=== PATIENT | female | born 1975 | race Caucasian/White ===

== ENCOUNTER → 2018-04-07 | Outpatient (CLI) | payer BC ==
[2014-09-12 21:45] VITALS: BP 156/78
[~2018-04-07] MED LIST: HYDR1TAB10 PO; IOHEXOL 240 MG/ML 50ML VIAL. ONE; IOHEXOL 240 MG/ML 50ML VIAL. PO ONE
--- NOTE | 2018-04-07 10:47 | RAD ---
CT study of the abdomen and pelvis without IV contrast Clinical indications: Left upper quadrant abdominal pain for one week increasing in severity. TECHNIQUE: Non-IV contrast helical CT scanning of the abdomen and pelvis was performed. Without IV contrast, the sensitivity to detect organ pathology is decreased. GI contrast was administered per mouth. PQRS compliance Statement One or more of the following individualized dose reduction techniques were utilized for this study: 1. Automated exposure control 2. Adjustment of the mA and/or kV according to patient size 3. Use of iterative reconstruction technique COMPARISON: None available. FINDINGS: The liver and spleen and pancreas are homogeneous in appearance on this noncontrast study. The gallbladder is surgically absent. No extrahepatic biliary ductal dilatation is seen. No adrenal mass is evident. No urinary tract stone or hydronephrosis or hydroureter is seen on either side. No renal mass is seen on either side on this noncontrast study. No focal aneurysmal dilatation of the abdominal aorta is seen. No enlarged abdominal or pelvic lymphadenopathy is evident. Urinary bladder wall is smooth. Uterus is surgically absent. The left ovary is is identified and is normal. The right ovary may be visualized on axial images 128-132 and series 2. However, this could represent nonopacified bowel. There is a round structure present here which measures 2 cm which could represent a right ovarian cyst. Regardless, this is considered a normal finding. No bowel obstruction or free air or free fluid or mesenteric edema is evident. No diverticulitis is evident. The appendix is not visualized but there are no secondary CT findings of appendicitis. The terminal ileum is unremarkable. No lytic process is seen. Bibasilar lung nodules are seen. There is a 6 mm lung nodule within the medial posterior right lung base. There is a 5 mm lung nodule within the medial posterior aspect of the left lung base. IMPRESSION: No acute abnormality of the abdomen or pelvis. Bibasilar lung nodules. Recommend dedicated outpatient chest CT with IV contrast for further evaluation and follow-up. Electronically signed by: Anival Galvez MD (04/07/2018 10:44 AM) [id number]
== END | disposition home or self-care (01) ==
LOC: CT 08:53
PROVIDERS: ATTEND Family Medicine
DX: R10.12 Left upper quadrant pain (principal); R91.8 Other nonspecific abnormal finding of lung field; Z90.710 Acquired absence of both cervix and uterus
CPT/HCPCS: 74176; Q9966

== ENCOUNTER 2021-01-05 03:55 | Inpatient (IN) | payer BC ==
[~2021-01-05] VITALS: Ht 170.2 cm; Wt 122.6 kg
[~2021-01-05 03:55] MED LIST changes: -IOHEXOL 240 MG/ML 50ML VIAL. ONE; -IOHEXOL 240 MG/ML 50ML VIAL. PO ONE
--- NOTE | 2021-01-05 04:01 | PHYS DOC ---
Past History Past Medical History: No Pertinent History Past Surgical History: No Surgical History Alcohol Use: None Drug Use: None Adult General HPI HPI Patient is a 45-year-old female with a past medical history of diabetes who presents with fatigue, body aches, decreased appetite and nonproductive cough over the last several days. States that her daughter had similar symptoms about a week or 2 ago and has now resolved. States her symptoms started probably a week ago but worsened last couple of days. States she has been at home since then but did not call her primary care physician because she was too tired to call. Denies any recent traumas, travels, fevers, chest pain, shortness of breath, abdominal pain, nausea, vomiting, diarrhea. Denies any dysuria, hematuria, blood in the stool. Review of Systems Review of Systems Review of systems otherwise unremarkable except noted in HPI Allergies Allergies Allergies Coded Allergies Type Severity Reaction Last Updated Verified Penicillins Allergy Intermediate 06/17/14 No Physical Exam Physical Exam Constitutional: Well developed, well nourished, no acute distress, non-toxic appearance. [] HENT: Normocephalic, atraumatic, bilateral external ears normal, oropharynx moist, no oral exudates, nose normal. [] Eyes: conjunctiva normal, no discharge. [] Neck: Normal range of motion, no tenderness, supple, no stridor. [] Cardiovascular:Heart rate regular rhythm, no murmur [] Lungs & Thorax: Bilateral breath sounds clear to auscultation [] Abdomen: soft, no tenderness, no masses, no pulsatile masses. [] Skin: Warm, dry, no erythema, no rash. [] Extremities: No tenderness, no cyanosis, no clubbing, ROM intact, no edema. [] Neurologic: Alert and oriented X 3, no focal deficits noted. [] Psychologic: Affect normal, judgement normal, mood normal. [] EKG EKG [] Radiology/Procedures Radiology/Procedures [] Heart Score C/O Chest Pain: No Risk Factors: Risk Factors: DM, Current or recent (<one month) smoker, HTN, HLP, family history of CAD, obesity. Risk Scores: Risk Factors: DM, Current or recent (<one month) smoker, HTN, HLP, family history of CAD, obesity. Course & Med Decision Making Course & Med Decision Making Patient is a 45-year-old female who presents with fatigue, body aches and dry cough Vital signs notable for tachycardia. Physical exam noted above. Placed on the monitor with IV access established. IV fluid begun. Placed on 2 L nasal cannula. Given Tylenol, ibuprofen and cough syrup. Chest x-ray suggestive of viral/atypical/Covid pneumonia. Patient stated that she forgot that she was exposed to Covid a couple weeks ago. Started on steroids. Started antibiotics. Discussed all findings with patient and family and recommended admission for continued evaluation and treatment of probable Covid pneumonia with new oxygen requirement. Patient family grateful, verbalized understanding and agreed with plan of admission. Dragon Disclaimer Dragon Disclaimer This electronic medical record was generated, in whole or in part, using a voice recognition dictation system. Departure Departure: Impression: Primary Impression: Pneumonia Additional Impressions: Hypoxia Person under investigation for COVID-19 Disposition: 01 HOME / SELF CARE / HOMELESS Admitting Physician: Fidencio Howell Condition: IMPROVED Referrals: TREY MARTINEZ MD (PCP) Problem Qualifiers SARITHA DUGGAN MD Jan 05, 2021 04:01
[2021-01-05] MEDS ORDERED: IBUPROFEN 600 MG TABLET. PO ONE (04:30)
[2021-01-05] MEDS ORDERED: ACETAMINOPHEN 500 MG TABLET PO ONE (04:30)
[2021-01-05] MEDS ORDERED: guaiFENesin/CODEINE 100mg/10mg 5 ML LIQUID PO ONE (04:30)
[2021-01-05] MEDS ORDERED: IV RINGERS SOLUTION,LACTATED 1,000 ML IV ONE (04:30)
--- NOTE | 2021-01-05 05:02 | RAD ---
XR CHEST 1V Clinical History: Reason: cough, short of air / Spl. Instructions: / History: Technique: AP view of the chest was obtained at 01/05/2021 4:22 AM. Comparison: None. Findings: The cardiomediastinal silhouette is normal. The pulmonary vasculature is normal. There is patchy jose pheral opacities of lungs bilaterally. Impression: Bilateral pulmonary infiltrates consistent with atypical pneumonia. Electronically signed by: Nicola Miramontes III, MD (01/05/2021 5:00 AM) [facility]
[2021-01-05 05:14] LABS: BASO % 0 % (0-3); EOS % 0 % (0-3); HEMATOCRIT 43.1 % (36.0-47.0); HEMOGLOBIN 14.4 g/dL (12.0-15.5); LYMPH # 0.9 x10^3/uL (1.0-4.8); LYMPH % 14 % (24-48); MEAN CORPUSCULAR HEMOGLOBIN 31 pg (25-35); MEAN CORPUSCULAR HGB CONC 33 g/dL (31-37); MEAN CORPUSCULAR VOLUME 92 fL (79-100); MONO # 0.4 x10^3/uL (0.0-1.1); MONO % 6 % (0-9); NEUT # 5.2 x10^3uL (1.8-7.7); NEUT % 80 % (31-73); PLATELET COUNT 229 x10^3/uL (140-400); RED BLOOD COUNT 4.71 x10^6/uL (3.50-5.40); RED CELL DISTRIBUTION WIDTH 13.3 % (11.5-14.5); WHITE BLOOD COUNT 6.5 x10^3/uL (4.0-11.0)
[2021-01-05] MEDS ORDERED: ONDANSETRON PF 4 MG/2 ML VIAL. IVP PRN (05:15)
[2021-01-05] MEDS ORDERED: ACETAMINOPHEN 325 MG TABLET PO PRN (05:15)
[2021-01-05 05:20] LABS: CALCIUM 8.5 mg/dL (8.5-10.1); CREATININE 0.6 mg/dL (0.6-1.0); GFR 109.1
[2021-01-05 05:22] LABS: BILIRUBIN,URINE SMALL (NEG); CLARITY,URINE CLEAR; COLOR,URINE YELLOW; GLUCOSE,URINE 100 mg/dL (NEG); U PREG PATIENT NEGATIVE (NEG)
[2021-01-05 05:23] LABS: BACTERIA,URINE 0 /HPF (0-FEW); NITRITE,URINE NEG (NEG); RBC,URINE RARE /HPF (0-2); SQUAMOUS EPITHELIAL CELL,UR MOD /LPF; WBC,URINE OCC /HPF (0-4)
[2021-01-05 05:24] LABS: YEAST,URINE PRESENT /HPF
[2021-01-05 05:25] LABS: POTASSIUM 4.9 mmol/L (3.5-5.1)
[2021-01-05] MEDS ORDERED: DEXAMETHASONE 4 MG TABLET PO ONE (05:30)
[2021-01-05] MEDS ORDERED: PANTOPRAZOLE 40 MG TABLET. PO ONE ×2 (10:00→11:30)
[2021-01-05] MEDS ORDERED: DULoxetine HCL 60 MG CAPSULE.DR PO SCH (11:30)
[2021-01-05] MEDS ORDERED: FAMOTIDINE 20 MG TABLET PO ONE (11:30)
[2021-01-05] MEDS ORDERED: metFORMIN 500 MG TABLET PO ONE (11:30)
[2021-01-05] MEDS ORDERED: EZETIMIBE 10 MG TABLET PO SCH (11:30)
[2021-01-05] MEDS ORDERED: HEPARIN for SUB-Q USE 5,000 UNIT/ML VIAL. SQ ONE (11:48)
[2021-01-05] MEDS: hydrOXYzine PAMOATE 25 MG CAPSULE PO PRN ×2 (11:53→21:16)
[2021-01-05] MEDS: INSULIN LISPRO 300 UNITS/3 ML VIAL. SQ SCH (12:11)
[2021-01-05] MEDS: HEPARIN for SUB-Q USE 5,000 UNIT/ML VIAL. SQ SCH ×2 (14:15→21:18)
[2021-01-05] MEDS ORDERED: INSULIN REGULAR 100 UNIT/ML 3ML VIAL. IV ONE (14:30)
--- NOTE | 2021-01-05 15:30 | NUR ---
Nursing note: Pt arrived on gurney from ED. Pt seen by RN lorene LUCAS. Pt alert and oriented x4, pleasant, cooperative. Orientation to room amenities and unit routines provided. Pt states she had hystory of falls at home d/t numbness at feet. She also states she has sleep apnea and wanted to have sleep avaluation but did not have the procedure done d/t lack of insurance approval. health promotion manager referral initiated.
[2021-01-05] MEDS ORDERED: HYDR25TA PO (15:56)
[2021-01-05] MEDS ORDERED: METO50TA6 PO (15:56)
[2021-01-05] MEDS ORDERED: FAMO40TA4 PO (15:56)
[2021-01-05] MEDS ORDERED: PANT40TA6 PO (15:56)
[2021-01-05] MEDS ORDERED: METF10007 PO (15:56)
[2021-01-05] MEDS ORDERED: ASPI-630 PO (15:56)
[2021-01-05] MEDS ORDERED: MULT-245 PO (15:56)
[2021-01-05] MEDS ORDERED: MONT10TA80 PO (15:56)
[2021-01-05] MEDS ORDERED: DULO40CA2 PO (15:56)
[2021-01-05] MEDS ORDERED: TRAZ150T49 PO (15:56)
[2021-01-05] MEDS ORDERED: ROSUVASTATIN CA40 MG PO (15:56)
[2021-01-05] MEDS ORDERED: CHOL10004 PO (15:56)
[2021-01-05] MEDS ORDERED: IBUP200T58 PO (15:56)
[2021-01-05] MEDS ORDERED: DAPA10TA PO (15:56)
[2021-01-05] MEDS ORDERED: LORA10TA3 PO (15:56)
[2021-01-05] MEDS ORDERED: SEMA1PEN SQ (15:56)
[2021-01-05] MEDS ORDERED: INSU100V37 SQ (15:56)
[2021-01-05] MEDS ORDERED: EZET10TA20 PO (15:56)
[2021-01-05] MEDS ORDERED: INSU100C4 SQ (15:56)
[2021-01-05 16:10] VITALS: BP 117/70
--- NOTE | 2021-01-05 17:37 | HP ---
DATE OF SERVICE: 01/05/2021 ADMIT DATE: 01/05/2021 HISTORY OF PRESENT ILLNESS: The patient is a 45-year-old female patient who presented to the Emergency Room of [facility] with a complaint of increasing fatigue, body aches, decreased poor appetite and nonproductive cough over the last several days. She states that her daughter had similar symptoms about 2 weeks ago, that has resolved. Stated her symptoms started probably a week ago, but worsened over the last couple of days. She has been at home since then. She was too weak to call her primary care physician. She was exposed to her daughter's friend who tested positive for COVID. She denied, however, any recent travel. Denied any fever, chest pain, nausea, vomiting, diarrhea or constipation. Denied loss of taste or smell. She was extensively investigated in the Emergency Room, has had lab work and imaging studies. Her lab work showed her white cell count was normal. Her chemistry showed that she has hyperglycemia and mild dilutional hyponatremia. Her urinalysis essentially unremarkable. Her urine test was negative, and her coronavirus by rapid testing was positive. Her chest x-ray showed that the cardiomediastinal silhouette is normal. The pulmonary vasculature is normal. There are patchy peripheral opacities in the lungs bilaterally, with the impression that the patient has bilateral pulmonary infiltrates consistent with ____ pneumonia. The patient was admitted to the hospital with the COVID-19 pneumonia and acute hypoxic respiratory failure. She was started on IV levofloxacin and dexamethasone as well as heparin and we will continue all her home medications. PAST MEDICAL HISTORY: Significant for type 2 diabetes mellitus with diabetic retinopathy and neuropathy. She apparently had laser photocoagulation, hyperlipidemia, hypertension, osteoarthritis of both knee joints. PAST SURGICAL HISTORY: Significant for 3 C-sections, cholecystectomy and total abdominal hysterectomy without oophorectomy. ALLERGIES: SHE IS ALLERGIC TO CARI INHIBITORS, FISH-CONTAINING PRODUCTS, PENICILLIN, AVOCADO, CLINDAMYCIN, FLUVOXAMINE, KIWI AND MORPHINE. MEDICATIONS: She is currently on the following medications: She is on loratadine 10 mg once a day, Zetia 10 mg once a day, metoprolol tartrate 50 mg daily. She is on aspirin 81 mg once a day, ibuprofen 200 mg as needed, hydrocodone/ibuprofen 7.5/200 one tablet every 6 hours, duloxetine 60 mg twice a day, trazodone 150 mg at bedtime, hydroxyzine 50 mg daily. She is on montelukast 10 mg daily, famotidine 40 mg daily and Protonix 40 mg daily. She is on metformin 1000 mg twice a day. She was on Ozempic 1 mg in 0.75 mL subcutaneously once a week. She is on NovoLog insulin 35 units at least 3 times a day before meals and Tresiba 50 units subcutaneously twice a day. She is on Farxiga 10 mg daily. She is on ____ vitamin D 25 mcg once a day and multivitamin 1 tablet once a day, Crestor 40 mg at bedtime. FAMILY HISTORY: She has no full brothers or sisters. Does not know anything about her biological father. Mother is still alive at the age of 59, has diabetes and multiple TIAs. SOCIAL HISTORY: She is , has 2 daughters and 1 son. She never smoked. Drinks alcohol once in a blue aguirre. She does not use any drugs. 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 REVIEW OF SYSTEMS: As per history of present illness. PHYSICAL EXAMINATION: GENERAL: On arrival to the Emergency Room, she looked well and was clearly in no apparent respiratory distress. There was no pallor, jaundice, cyanosis. No lymphadenopathy, no thyromegaly, no jugular venous distention. No lower limb edema. VITAL SIGNS: Her heart rate was 115, blood pressure was 114/70, her temperature was 98.5, respiratory rate was 22 and oxygen saturation was 97% on 2 liters of oxygen. HEAD, EYES, EARS, NOSE, AND THROAT: Showed normocephalic, atraumatic. NECK: Supple. HEART: Showed normal first and second heart sounds. No gallop or murmur. CHEST: Shows central trachea, equal bilateral chest expansion, air entry, vesicular breath sounds with crepitation mostly on the right side posteriorly. I could not appreciate any rhonchi. ABDOMEN: Distended, soft, nontender. NEUROLOGIC: She was grossly intact. LABORATORY DATA: Her lab work on admission showed a white cell count of 6500, hemoglobin 14, hematocrit 43, MCV 92 and platelet count 229,000, and manual differential showed 80% polymorphs, 14% lymphocytes, 6% monocytes. Her chemistry showed a serum sodium 133, potassium 4.9, chloride 95, bicarbonate 25, anion gap of 13, BUN 14, creatinine 0.6. Estimated GFR was 109 mL per minute. Her glucose was ____ and calcium was 8.5. Troponin I high sensitivity was only 6. Urinalysis essentially unremarkable, and her coronavirus by rapid testing was positive. Her chest x-ray showed the patient has bilateral pulmonary infiltrates consistent with atypical pneumonia. ASSESSMENT AND PLAN: The patient was admitted with COVID-19 pneumonia and acute hypoxic respiratory failure. We will continue treatment with IV antibiotic, IV remdesivir, dexamethasone. We will continue to monitor blood sugar and adjust insulin as needed. Continue with all her other medications. DONTRELL DR: Anabel TID: [id number]
[2021-01-05] MEDS ORDERED: REMDESIVIR LOAD in IV NORMAL SALINE 250ML TV IV ONE (18:00)
[2021-01-05] MEDS: DULoxetine HCL 60 MG CAPSULE.DR PO SCH (18:17)
[2021-01-05] MEDS: INSULIN GLARGINE SYRINGE. SQ SCH (18:19)
[2021-01-05 18:39] VITALS: BP 130/79
--- NOTE | 2021-01-05 19:21 | EKG ---
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
[2021-01-05] MEDS ORDERED: metFORMIN XR 500 MG TAB.ER.24H PO SCH (21:00)
[2021-01-05] MEDS: traZODone 150 MG TABLET. PO SCH (21:16)
[2021-01-05] MEDS: ATORVASTATIN CALCIUM 20 MG TABLET PO SCH (21:16)
[2021-01-05] MEDS: MONTELUKAST 10 MG TABLET. PO SCH (21:16)
[2021-01-05 22:40] VITALS: BP 120/72
[2021-01-06] MEDS: HEPARIN for SUB-Q USE 5,000 UNIT/ML VIAL. SQ SCH ×3 (06:06→21:36)
[2021-01-06 06:15] LABS: BASO % 0 % (0-3); EOS % 0 % (0-3); HEMATOCRIT 41.8 % (36.0-47.0); HEMOGLOBIN 13.8 g/dL (12.0-15.5); LYMPH # 0.9 x10^3/uL (1.0-4.8); LYMPH % 11 % (24-48); MEAN CORPUSCULAR HEMOGLOBIN 30 pg (25-35); MEAN CORPUSCULAR HGB CONC 33 g/dL (31-37); MEAN CORPUSCULAR VOLUME 92 fL (79-100); MONO # 0.4 x10^3/uL (0.0-1.1); MONO % 5 % (0-9); NEUT # 6.2 x10^3uL (1.8-7.7); NEUT % 84 % (31-73); PLATELET COUNT 234 x10^3/uL (140-400); RED BLOOD COUNT 4.55 x10^6/uL (3.50-5.40); RED CELL DISTRIBUTION WIDTH 13.3 % (11.5-14.5); WHITE BLOOD COUNT 7.4 x10^3/uL (4.0-11.0)
[2021-01-06 06:17] VITALS: BP 105/63
[2021-01-06 06:27] LABS: ALBUMIN 2.5 g/dL (3.4-5.0); ALBUMIN/GLOBULIN RATIO 0.5 (1.0-1.7); CALCIUM 8.8 mg/dL (8.5-10.1); CREATININE 0.8 mg/dL (0.6-1.0); GFR 78.3; POTASSIUM 4.4 mmol/L (3.5-5.1); TOTAL BILIRUBIN 0.3 mg/dL (0.2-1.0); TOTAL PROTEIN 7.2 g/dL (6.4-8.2)
[2021-01-06] MEDS ORDERED: INSULIN ASPART 35 UNIT SQ SCH (07:30)
[2021-01-06] MEDS ORDERED: NON FORMULARY ITEM (Dapagliflozin Propanediol (Farxiga) 10 MG) PO SCH (08:00)
[2021-01-06] MEDS: INSULIN GLARGINE SYRINGE. SQ SCH ×2 (08:42→21:36)
[2021-01-06] MEDS: CHOLECALCIFEROL (VITAMIN D3) 1,000 UNIT TABLET PO SCH (08:43)
[2021-01-06] MEDS: DULoxetine HCL 60 MG CAPSULE.DR PO SCH ×2 (08:43→17:06)
[2021-01-06] MEDS: CETIRIZINE HCL 10 MG TABLET PO SCH (08:43)
[2021-01-06] MEDS: EZETIMIBE 10 MG TABLET PO SCH (08:43)
[2021-01-06] MEDS: MULTIVITAMIN with MINERAL TABLET. PO SCH (08:43)
[2021-01-06] MEDS: PANTOPRAZOLE 40 MG TABLET. PO SCH (08:43)
[2021-01-06] MEDS: ASPIRIN CHEWABLE 81 MG TABLET. PO SCH (08:43)
[2021-01-06] MEDS: METOPROLOL SUCC 24HR ER 50 MG TAB.ER.24H. PO SCH (08:44)
[2021-01-06] MEDS: DEXAMETHASONE SOD PHOS 4 MG/ML VIAL. IVP SCH (08:45)
[2021-01-06] MEDS: INSULIN LISPRO 300 UNITS/3 ML VIAL. SQ SCH ×3 (09:12→17:14)
[2021-01-06 11:07] VITALS: BP 103/73
[2021-01-06 14:37] VITALS: BP 120/69
[2021-01-06] MEDS: REMDESIVIR 100mg in NORMAL SALINE 250ML X 4 DAYS IV SCH (17:06)
[2021-01-06 20:47] VITALS: BP 115/66
[2021-01-06] MEDS: MONTELUKAST 10 MG TABLET. PO SCH (21:36)
[2021-01-06] MEDS: traZODone 150 MG TABLET. PO SCH (21:36)
[2021-01-06] MEDS: ATORVASTATIN CALCIUM 20 MG TABLET PO SCH (21:37)
[2021-01-06 22:30] VITALS: BP 103/75
--- NOTE | 2021-01-06 23:36 | NUR ---
Pt lying on left side resting at start of shift. Pt states, "I feel better than yesterday." She denies pain and moves independently to toilet. Will continue to monitor.
--- NOTE | 2021-01-07 00:17 | PN ---
DATE: 01/06/2021 SUBJECTIVE: The patient is resting, slightly propped up in bed, in no apparent distress, awake, alert. On questioning her, she said she does have cough, which is mostly dry. Denied any chest pain. Denied any chills, rigors or fever. Denied any shortness of breath and dizziness or lightheadedness. She has been up to the bathroom and back. She continued to maintain her oxygen saturation of 93% on 2 liters of oxygen by nasal cannula. PHYSICAL EXAMINATION: GENERAL: When I examined her, she looked well and was clearly in no apparent respiratory distress. No pallor, jaundice, cyanosis or thyromegaly. No jugular venous distention. No limb edema. VITAL SIGNS: Her heart rate was 84, blood pressure is 103/73, temperature was 95.5, respiratory rate was 16 and oxygen saturation was 93% on 2 liters of oxygen. HEAD, EYES, EARS, NOSE, AND THROAT: Normocephalic, atraumatic. NECK: Supple. HEART: Showed normal first and second heart sounds. No gallop, rub or murmur. CHEST: Clear to auscultation, no crepitation or rhonchi. ABDOMEN: Distended, soft, nontender. NEUROLOGIC: She was grossly intact. Her intake and output were 1370 and output was ____. LABORATORY DATA: Her white cell count was 7400, hemoglobin 14, hematocrit 42, MCV 92 and platelet count 234,000. Her chemistry showed a serum sodium 140, potassium 4.4, chloride 102, bicarbonate 26, anion gap of 12, BUN 21, creatinine was 0.8. Estimated GFR was 78 mL per minute. Her glucose continued to be high at 336, calcium was 8.8. Total bilirubin, AST, ALT, alkaline phosphatase were normal. ASSESSMENT: In summary, this is a 45-year-old who was admitted with COVID-19 pneumonia, acute hypoxic respiratory failure. She has a multitude of other medical problems including type 2 diabetes mellitus with multiple diabetic complications including retinopathy and neuropathy, hyperlipidemia, hypertension, osteoarthritis of both knee joints. Her blood sugar is suboptimally controlled. PLAN: My plan is to continue with IV antibiotic. Continue with dexamethasone and remdesivir. Continue with IV levofloxacin. I will increase her insulin as she continued to be on dexamethasone. I will increase her Lantus insulin to 60 units b.i.d. and her Humalog insulin to 40 units before meals. KAJAL DR: Anabel TID: [id number]
[2021-01-07] MEDS: HEPARIN for SUB-Q USE 5,000 UNIT/ML VIAL. SQ SCH ×3 (06:15→21:34)
[2021-01-07 06:36] VITALS: BP 87/38
--- NOTE | 2021-01-07 06:39 | NUR ---
Pt lying right lateral. BP measured 87/38, map 54. 500mL bolus NS administered. Dr. Dante avelar. Will remeasure BP in 30 minutes.
[2021-01-07] MEDS: INSULIN GLARGINE SYRINGE. SQ SCH ×2 (07:00→21:33)
[2021-01-07 07:59] LABS: BASO % 0 % (0-3); EOS % 0 % (0-3); HEMATOCRIT 39.3 % (36.0-47.0); HEMOGLOBIN 12.8 g/dL (12.0-15.5); LYMPH # 1.3 x10^3/uL (1.0-4.8); LYMPH % 15 % (24-48); MEAN CORPUSCULAR HEMOGLOBIN 30 pg (25-35); MEAN CORPUSCULAR HGB CONC 33 g/dL (31-37); MEAN CORPUSCULAR VOLUME 92 fL (79-100); MONO # 0.5 x10^3/uL (0.0-1.1); MONO % 6 % (0-9); NEUT # 6.9 x10^3uL (1.8-7.7); NEUT % 79 % (31-73); PLATELET COUNT 282 x10^3/uL (140-400); RED BLOOD COUNT 4.28 x10^6/uL (3.50-5.40); RED CELL DISTRIBUTION WIDTH 13.3 % (11.5-14.5); WHITE BLOOD COUNT 8.7 x10^3/uL (4.0-11.0)
[2021-01-07] MEDS: INSULIN LISPRO 300 UNITS/3 ML VIAL. SQ SCH ×3 (08:00→17:49)
[2021-01-07 08:06] LABS: ALBUMIN 2.4 g/dL (3.4-5.0); ALBUMIN/GLOBULIN RATIO 0.6 (1.0-1.7); CALCIUM 8.7 mg/dL (8.5-10.1); CREATININE 0.7 mg/dL (0.6-1.0); GFR 91.3; POTASSIUM 3.8 mmol/L (3.5-5.1); TOTAL BILIRUBIN 0.3 mg/dL (0.2-1.0); TOTAL PROTEIN 6.7 g/dL (6.4-8.2)
[2021-01-07 08:11] VITALS: BP 86/50
[2021-01-07] MEDS: METOPROLOL SUCC 24HR ER 50 MG TAB.ER.24H. PO SCH (09:00)
[2021-01-07] MEDS: DULoxetine HCL 60 MG CAPSULE.DR PO SCH ×2 (09:23→17:49)
[2021-01-07] MEDS: LACTOBACILLUS RHAMNOSUS GG 1 CAPSULE. PO SCH ×2 (09:23→21:31)
[2021-01-07] MEDS: CHOLECALCIFEROL (VITAMIN D3) 1,000 UNIT TABLET PO SCH (09:23)
[2021-01-07] MEDS: EZETIMIBE 10 MG TABLET PO SCH (09:23)
[2021-01-07] MEDS: ASPIRIN CHEWABLE 81 MG TABLET. PO SCH (09:23)
[2021-01-07] MEDS: CETIRIZINE HCL 10 MG TABLET PO SCH (09:23)
[2021-01-07] MEDS: DEXAMETHASONE SOD PHOS 4 MG/ML VIAL. IVP SCH (09:24)
[2021-01-07] MEDS: MULTIVITAMIN with MINERAL TABLET. PO SCH (09:24)
[2021-01-07] MEDS: PANTOPRAZOLE 40 MG TABLET. PO SCH (09:26)
[2021-01-07 10:44] VITALS: BP 100/62
[2021-01-07 14:12] VITALS: BP 114/71
[2021-01-07 17:58] VITALS: BP 129/83
[2021-01-07] MEDS: REMDESIVIR 100mg in NORMAL SALINE 250ML X 4 DAYS IV SCH (18:15)
--- NOTE | 2021-01-07 20:08 | PN ---
SUBJECTIVE: The patient is resting, slightly propped up in bed, in no apparent distress. She is feeling generally much better. Denied any cough or phlegm. Denied any chest pain or shortness of breath. She is now maintaining her oxygen saturation at 94% on room air. PHYSICAL EXAMINATION: GENERAL: When I examined her, she looked well with no pallor, jaundice, cyanosis or thyromegaly. No jugular venous distention. No limb edema. VITAL SIGNS: Her heart rate was 71, blood pressure is 100/62, temperature 97.3, respiratory rate 20 and oxygen saturation was 94% on 3 liters of oxygen. HEAD, EYES, EARS, NOSE, AND THROAT: Normocephalic, atraumatic. NECK: Supple. HEART: Showed normal first and second heart sounds, no gallop or murmur. CHEST: Showed central trachea, equal bilateral expansion, air entry, vesicular breath sounds with crepitation mostly on the right side posteriorly. I could not appreciate any rhonchi. ABDOMEN: Distended, soft, nontender. NEUROLOGIC: She was grossly intact. Her intake was 1370, no output was recorded. LABORATORY DATA: This morning showed a white cell count of 8700, hemoglobin 13, hematocrit 39, MCV 92 and platelet count of 282,000 with normal manual differential. Her chemistry showed a serum sodium 142, potassium 3.8, chloride 106, bicarbonate 29, anion gap of 7, BUN 25, creatinine 0.7. Estimated GFR was 91 mL per minute. Her glucose was 91, calcium was 8.7. Total bilirubin, AST, ALT, alkaline phosphatase were normal. Total protein 6.7, albumin was 2.4. Urinalysis was essentially unremarkable. ASSESSMENT: 1. COVID-19 pneumonia. 2. Acute hypoxic respiratory failure. 3. Type 2 diabetes mellitus, much better improved. She has also diabetic retinopathy, neuropathy. 4. Hyperlipidemia. 5. Hypertension. 6. Osteoarthritis of both knee joints. PLAN: To continue with IV antibiotic. Continue with steroids and remdesivir. Continue to monitor his blood sugar and adjust insulin as needed. We will discharge her home tomorrow. HUGO BALDWIN: Anabel TID: [id number]
[2021-01-07] MEDS: MONTELUKAST 10 MG TABLET. PO SCH (21:30)
[2021-01-07] MEDS: traZODone 150 MG TABLET. PO SCH (21:31)
[2021-01-07] MEDS: ATORVASTATIN CALCIUM 20 MG TABLET PO SCH (21:31)
[2021-01-08 00:30] VITALS: BP 122/80
[2021-01-08 06:17] VITALS: BP 121/81
[2021-01-08] MEDS: HEPARIN for SUB-Q USE 5,000 UNIT/ML VIAL. SQ SCH ×2 (06:25→14:37)
[2021-01-08] MEDS: INSULIN LISPRO 300 UNITS/3 ML VIAL. SQ SCH ×2 (07:54→11:58)
[2021-01-08] MEDS: ASPIRIN CHEWABLE 81 MG TABLET. PO SCH (07:55)
[2021-01-08] MEDS: PANTOPRAZOLE 40 MG TABLET. PO SCH (07:55)
[2021-01-08] MEDS: CHOLECALCIFEROL (VITAMIN D3) 1,000 UNIT TABLET PO SCH (07:55)
[2021-01-08] MEDS: EZETIMIBE 10 MG TABLET PO SCH (07:55)
[2021-01-08] MEDS: MULTIVITAMIN with MINERAL TABLET. PO SCH (07:55)
[2021-01-08] MEDS: CETIRIZINE HCL 10 MG TABLET PO SCH (07:55)
[2021-01-08] MEDS: LACTOBACILLUS RHAMNOSUS GG 1 CAPSULE. PO SCH (07:55)
[2021-01-08] MEDS: DULoxetine HCL 60 MG CAPSULE.DR PO SCH (07:55)
[2021-01-08] MEDS: METOPROLOL SUCC 24HR ER 50 MG TAB.ER.24H. PO SCH (07:56)
[2021-01-08] MEDS: DEXAMETHASONE SOD PHOS 4 MG/ML VIAL. IVP SCH (07:56)
[2021-01-08] MEDS: INSULIN GLARGINE SYRINGE. SQ SCH (09:03)
[2021-01-08 11:51] VITALS: BP 120/76
[2021-01-08] MEDS ORDERED: LEVO750T5 PO (14:19)
[2021-01-08] MEDS ORDERED: DEXA6TAB PO (14:19)
[2021-01-08] MEDS: REMDESIVIR 100mg in NORMAL SALINE 250ML X 4 DAYS IV SCH (14:29)
--- NOTE | 2021-01-08 15:21 | NUR ---
PT DISCHARGED HOME. PT PICKED UP BY . PT HAD DISCHARGE PAPERWORK AND BELONGINGS. PT AMBULATED TO THE FRONT ACCOMPANIED BY STAFF. PT IV AND HEART MONITORED REMOVED.
--- NOTE | 2021-01-08 15:47 | DS ---
DATE OF DISCHARGE: 01/08/2021 HOSPITAL COURSE: The patient is a 45-year-old female patient who was admitted with COVID-19 pneumonia, possible superimposed community-acquired pneumonia and acute hypoxic respiratory failure. She was treated with IV Levaquin as well as dexamethasone and remdesivir and did very well. She is now doing well, maintaining her oxygen saturation at 96% on room air and a decision was made to discharge her home to continue with oral antibiotics and oral dexamethasone together with all her other medication. PHYSICAL EXAMINATION: GENERAL: When I saw her this afternoon, she looked well and was clearly in no apparent respiratory distress. No pallor, jaundice, cyanosis or thyromegaly. No jugular venous distention. No lower limb edema. VITAL SIGNS: Her heart rate was 80, blood pressure is 120/76, temperature 97.8, respiratory rate 20, and oxygen saturation was 96%. HEAD, EYES, EARS, NOSE AND THROAT: Normocephalic, atraumatic. NECK: Supple. HEART: Normal first and second heart sounds, no gallop or murmur. Chest was clear to auscultate. CHEST: Shows central trachea, equal bilateral expansion, air entry, vesicular breath sounds with basal crepitation posteriorly, more on the left than right. ABDOMEN: Soft, nontender. NEUROLOGIC: She was grossly intact. Her intake was 1370, no output was recorded. LABORATORY DATA: As of yesterday showed a white cell count of 8700, hemoglobin 13, hematocrit 39, MCV 92 and platelet count of 282,000 with a normal manual differential. Her chemistry showed that her serum sodium was 142, potassium 3.8, chloride 106, bicarbonate 29, anion gap of 7, BUN 26, creatinine 0.7. Estimated GFR was 91 mL per minute. Her glucose 91, calcium was 8.7. Total bilirubin, AST, ALT, alkaline phosphatase were normal. Total protein 6.7, albumin was 2.4. DISCHARGE MEDICATIONS: The patient was discharged home to continue on Lactobacillus rhamnosus 1 capsule twice a day, Lantus insulin 60 units twice a day, Humalog insulin 40 units before meals, dexamethasone 6 mg once a day for 7 more days, levofloxacin 750 mg daily for 7 more days, multivitamin 1 tablet once a day, cetirizine 10 mg daily, metoprolol succinate 50 mg daily, Zetia 10 mg once a day, vitamin D 1000 units once a day, aspirin 81 mg once a day, Protonix 40 mg daily, atorvastatin 80 mg at bedtime, trazodone 150 mg daily, montelukast 10 mg at bedtime, duloxetine 60 mg twice a day and hydroxyzine 50 mg every 6 hours. FINAL DISCHARGE DIAGNOSES: 1. COVID-19 pneumonia. 2. Acute hypoxic respiratory failure. 3. Possible superimposed community-acquired pneumonia. 4. Type 2 diabetes mellitus with diabetic retinopathy and neuropathy. 5. Hyperlipidemia. 6. Hypertension. 7. Osteoarthritis of both knee joints. MAGALYS/BRIAN DR: Anabel TID: [id number]
[2021-01-12] MEDS ORDERED: NON FORMULARY ITEM (Semaglutide (Ozempic) 1 MG) SQ SCH (09:00)
== END 2021-01-08 15:23 | disposition home or self-care (01) | DRG 177 ==
LOC: ER 03:55 → 1 SOUTH 14:53
PROVIDERS: ADMIT Internal Medicine; ATTEND Internal Medicine
PROC: XW033E5 Introduction of Remdesivir Anti-infective into Peripheral Vein, Percutaneous Approach, New Technology Group 5 (ICD-10-PCS; principal; 2021-01-05)
DX: U07.1 COVID-19 (principal); J12.82 Pneumonia due to coronavirus disease 2019; J96.01 Acute respiratory failure with hypoxia; E87.1 Hypo-osmolality and hyponatremia; E11.40 Type 2 diabetes mellitus with diabetic neuropathy, unspecified; I10 Essential (primary) hypertension; E78.5 Hyperlipidemia, unspecified; E11.319 Type 2 diabetes mellitus with unspecified diabetic retinopathy without macular edema; E11.65 Type 2 diabetes mellitus with hyperglycemia; M17.0 Bilateral primary osteoarthritis of knee; Z88.0 Allergy status to penicillin; Z90.710 Acquired absence of both cervix and uterus; Z83.3 Family history of diabetes mellitus
CPT/HCPCS: 36415; 71045; 80048; 80053; 81001; 81025; 82947; 83605; 84484; 85025; 87426; 93005; 96361; 96365; 96372; 96375; J1100; J1644; J1815; J1956; J2405; J3010; J7050; J7120; J8540; Q0177; 99285-25

== ENCOUNTER 2021-01-24 09:36 | Emergency (ER) | payer BC ==
[~2021-01-24] VITALS: Ht 322.6 cm; Wt 122.6 kg
[~2021-01-24 09:36] MED LIST changes: +ASPI-630 PO; +CHOL10004 PO; +DAPA10TA PO; +DEXA6TAB PO; +DULO40CA2 PO; +EZET10TA20 PO; +FAMO40TA4 PO; +HYDR25TA PO; +IBUP200T58 PO; +INSU100C4 SQ; +INSU100V37 SQ; +LEVO750T5 PO; +LORA10TA3 PO; +METF10007 PO; +METO50TA6 PO; +MONT10TA80 PO; +MULT-245 PO; +PANT40TA6 PO; +ROSUVASTATIN CA40 MG PO; +SEMA1PEN SQ; +TRAZ150T49 PO
[2021-01-24 09:40] VITALS: BP 120/76
--- NOTE | 2021-01-24 10:09 | EKG ---
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
[2021-01-24] MEDS ORDERED: IV NORMAL SALINE 1,000ML 1,000 ML IV ONE ×2 (10:15→13:15)
--- NOTE | 2021-01-24 10:15 | PHYS DOC ---
Past History Past Medical History: No Pertinent History Additional Past Medical Histor: NEUROPATHY, VIT D DEFICIENCY Past Surgical History: Appendectomy, Cholecystectomy, , Hysterectomy Alcohol Use: None Drug Use: None General Adult EDM: Chief Complaint: RAPID HEART RATE HPI: HPI: Patient is a 45-year-old female sent in by her primary care provider for tachycardia. Patient was recently hospitalized for COVID-19, states she did not require BiPAP or intubation. Has a history of poorly controlled type 2 diabetes and has been noncompliant with medications, only restarted her medications 2 days ago. Went to her primary care providers office today for bilateral fungal foot infection and was sent with prescriptions. Told to come to the emergency department for a heart rate of 141. Patient states she has had polydipsia and polyuria. States she has had residual shortness of breath since she has had Covid. Has a history of asthma, denies any smoking or COPD. Review of Systems: Review of Systems: All other systems within normal limits except for as noted in the HPI Allergies: Allergies: Allergies Coded Allergies Type Severity Reaction Last Updated Verified CARI Inhibitors Allergy Severe Anaphylaxis 01/05/21 Yes Fish Containing Products Allergy Severe Anaphylaxis 01/05/21 Yes avocado Allergy Severe Anaphylaxis 01/05/21 Yes fluvoxamine Allergy Severe Anaphylaxis 01/05/21 Yes kiwi Allergy Severe Anaphylaxis 01/05/21 Yes Penicillins Allergy Intermediate 06/17/14 No clindamycin Allergy Unknown Itching 01/05/21 Yes morphine Allergy Unknown 01/05/21 Yes Physical Exam: PE: Constitutional: Well developed, well nourished, no acute distress, non-toxic appearance. [] HENT: Normocephalic, atraumatic, bilateral external ears normal, nose normal. [] Eyes: PERRLA, conjunctiva normal, no discharge. [] Neck: No rigidity, supple, no stridor. [] Cardiovascular: Tachycardic, regular rhythm, brisk cap refill [] Lungs & Thorax: Non labored symmetric respirations, no tachypnea or respiratory distress [] Abdomen: Soft, nondistended. Skin: Warm, dry, no erythema, no rash. [] Back: Unremarkable Extremities: No deformities, range of motion grossly intact, no lower extremity edema [] Neurologic: Alert and oriented X 3, no focal deficits noted. [] Psychologic: Affect normal, judgement normal, mood normal. [] EKG: EKG: Sinus tachycardia, heart rate 103 once minute, normal axis, no ST elevation or depression, normal intervals, no ectopy [] Radiology/Procedures: Radiology/Procedures: [][address] [address] IMAGING REPORT Signed PATIENT: REBECA SANCHEZ: [id number] : 1975 LOCATION: ER AGE: 45 SEX: F EXAM STATUS: REG ER ORD. PHYSICIAN: VIVIEN PALAFOX MD REASON: swelling PROCEDURE: VENOUS LOWER EXTREMITY LEFT EXAMINATION: US DPLX VENOUS EXTREMITY LOWER LT INDICATION: Reason: swelling / Spl. Instructions: / History: COMPARISONS: None TECHNIQUE: Grayscale, color and spectral Doppler evaluation of the left lower extremity deep venous system(s) was performed. FINDINGS: left common femoral, femoral and popliteal veins are normally compressible and demonstrate normally directed and appropriately phasic flow with augmentation. Normal flow is present within the saphenofemoral junctions and deep femoral veins in the proximal thighs and the posterior tibial and peroneal veins in the proximal calves. IMPRESSION: No evidence of deep venous thrombosis in the left lower extremity Electronically signed by: Kellen Zimmerman DO (01/24/2021 11:01 AM) [facility] DICTATED AND SIGNED BY: KELLEN ZIMMERMAN DO DATE: 01/24/21 1101 CC: VIVIEN PALAFOX MD; TREY MARTINEZ MD ~MTH0 [address] [address] IMAGING REPORT Signed PATIENT: REBECA SANCHEZ: [id number] : 1975 LOCATION: ER AGE: 45 SEX: F EXAM STATUS: REG ER ORD. PHYSICIAN: VIVIEN PALAFOX MD REASON: shortness of breath, CONTRAST ORDRED, WTG LABS-DIABETIC PROCEDURE: CT ANGIOGRAPHY CHEST EXAMINATION: CT Pulmonary Angiogram with IV contrast INDICATION: Reason: shortness of breath, CONTRAST ORDRED, WTG LABS-DIABETIC / Spl. Instructions: / History: COMPARISON: Chest radiograph from 01/05/2021 TECHNIQUE: Using helical technique, CT data from the thoracic inlet through the upper abdomen was obtained during rapid IV contrast infusion. The examination was timed to the pulmonary arterial system to generate a CT angiographic study. 3D MIPS, sagittal and coronal reformats were generated. FINDINGS: Vascular: The study is diagnostic to the level of the subsegmental pulmonary arteries. Appropriate opacification of pulmonary arteries. Pulmonary arteries: No evidence of acute or chronic pulmonary embolism. The pulmonary arteries are normal in size. Thoracic aorta: Normal in size. Pulmonary veins: Normal drainage into the left atrium. Coronary arteries: Normal origins. No detectable calcified coronary atherosclerosis. Systemic veins: Within normal limits. Heart: The heart is normal in size. No pericardial effusion. Chest: Lungs/Pleura: Scattered and confluent predominantly peripheral groundglass opacities throughout bilateral lungs. No suspicious pulmonary nodules are visualized. No pleural effusion or focal pleural lesion. Mediastinum: Prominent mediastinal and hilar lymph nodes with no pathologically enlarged adenopathy injuring up to 7 mm in short axis in the right paratracheal region. There are 2 prominent retrocrural lymph nodes versus paraesophageal varices. The visualized thyroid and the esophagus are unremarkable Axilla/Soft Tissue: No supraclavicular or axillary adenopathy. Regional soft tissues are within normal limits. Upper abdomen. The liver appears enlarged with diffuse hepatic steatosis. There are perigastric/peripancreatic varices Gallbladder is absent. Spleen is borderline enlarged measuring 13 cm in maximal AP diameter. Gastric Bones: No evidence of acute fractures or aggressive osseous lesions. IMPRESSION: 1. No pulmonary embolism. 2. Multifocal airspace disease concerning for atypical viral pneumonia. 3. Findings suggestive of early chronic liver disease with likely stigmata of portal hypertension including splenomegaly and varices. Clinical correlation is recommended. PRQS compliance statement - One or more of the following individualized dose reduction techniques were utilized for this study: 1. Automated exposure control 2. Adjustment of the mA and/or kV according to patient size 3. Use of iterative reconstruction technique Electronically signed by: Kellen Zimmerman DO (01/24/2021 11:41 AM) [facility] DICTATED AND SIGNED BY: KELLEN ZIMMERMAN DO DATE: 01/24/21 1122 CC: VIVIEN PALAFOX MD; TREY MARTINEZ MD ~MTH0 0 Heart Score: C/O Chest Pain: No HEART Score for Chest Pain: HEART Score for Chest Pain Response (Comments) Value ECG Nonspecific Repolarizatio 1 Age >45 - < 65 1 Risk Factors 1 or 2 Risk Factors 1 Troponin < Normal Limit 0 Total 3 Risk Factors: Risk Factors: DM, Current or recent (<one month) smoker, HTN, HLP, family history of CAD, obesity. Risk Scores: Score 0 - 3: 2.5% MACE over next 6 weeks - Discharge Home Score 4 - 6: 20.3% MACE over next 6 weeks - Admit for Clinical Observation Score 7 - 10: 72.7% MACE over next 6 weeks - Early Invasive Strategies Course & Med Decision Making: Course & Med Decision Making Pertinent Labs and Imaging studies reviewed. (See chart for details) Patient's tachycardia is improving with fluids. Patient states she feels fine and would like to be discharged. Discussed findings of atypical pneumonia on CT and will send home with antibiotics and an inhaler in case she has developed a post Covid bacterial pneumonia. [] Dragon Disclaimer: Dragon Disclaimer: This electronic medical record was generated, in whole or in part, using a voice recognition dictation system. Departure Departure: Impression: Primary Impression: Hyperglycemia Additional Impression: Atypical pneumonia Disposition: HOME / SELF CARE / HOMELESS Condition: IMPROVED Referrals: TREY MARTINEZ MD (PCP) Patient Instructions: Metered Dose Inhaler (No Spacer Used) Scripts Doxycycline Hyclate (DOXYCYCLINE HYCLATE) 100 Mg Capsule 1 CAP PO BID for antibiotic for 5 Days, #10 CAP Prov: VIVIEN PALAFOX MD 01/24/21 Albuterol Sulfate (PROAIR HFA INHALER) 8.5 Gm Hfa.aer.ad 2 PUFF IH PRN Q4-6HRS PRN for wheezing for 21 Days, #1 INHALER 0 Refills Prov: VIVIEN PALAFOX MD 01/24/21 VIVIEN PALAFOX MD Jan 24, 2021 10:15
[2021-01-24] MEDS ORDERED: IOHEXOL 350 MG/ML 100 ML VIAL. IV ONE (10:30)
[2021-01-24 10:47] LABS: BASO # 0.1 x10^3/uL (0.0-0.2); BASO % 1 % (0-3); EOS # 0.2 x10^3/uL (0.0-0.7); EOS % 2 % (0-3); HEMATOCRIT 44.9 % (36.0-47.0); HEMOGLOBIN 15.3 g/dL (12.0-15.5); LYMPH % 21 % (24-48); MEAN CORPUSCULAR HEMOGLOBIN 31 pg (25-35); MEAN CORPUSCULAR HGB CONC 34 g/dL (31-37); MEAN CORPUSCULAR VOLUME 92 fL (79-100); MONO # 0.7 x10^3/uL (0.0-1.1); MONO % 7 % (0-9); NEUT # 6.8 x10^3uL (1.8-7.7); NEUT % 70 % (31-73); PLATELET COUNT 293 x10^3/uL (140-400); RED BLOOD COUNT 4.89 x10^6/uL (3.50-5.40); RED CELL DISTRIBUTION WIDTH 13.9 % (11.5-14.5); WHITE BLOOD COUNT 9.7 x10^3/uL (4.0-11.0)
[2021-01-24 10:57] LABS: CALCIUM 9.1 mg/dL (8.5-10.1); CREATININE 0.8 mg/dL (0.6-1.0); GFR 78.3; POTASSIUM 3.6 mmol/L (3.5-5.1)
--- NOTE | 2021-01-24 11:04 | RAD ---
EXAMINATION: US DPLX VENOUS EXTREMITY LOWER LT INDICATION: Reason: swelling / Spl. Instructions: / History: COMPARISONS: None TECHNIQUE: Grayscale, color and spectral Doppler evaluation of the left lower extremity deep venous s ystem(s) was performed. FINDINGS: left common femoral, femoral and popliteal veins are normally compressible and demonstrate normally d irected and appropriately phasic flow with augmentation. Normal flow is present within the saphenofemoral junctions and deep femoral veins in the proximal thi ghs and the posterior tibial and peroneal veins in the proximal calves. IMPRESSION: No evidence of deep venous thrombosis in the left lower extremity Electronically signed by: Kunal Zimmerman DO (01/24/2021 11:01 AM) [facility]
[2021-01-24 11:08] LABS: ALBUMIN 3.2 g/dL (3.4-5.0); ALBUMIN/GLOBULIN RATIO 0.7 (1.0-1.7); MAGNESIUM 1.8 mg/dL (1.8-2.4); TOTAL BILIRUBIN 0.6 mg/dL (0.2-1.0); TOTAL PROTEIN 7.5 g/dL (6.4-8.2)
[2021-01-24] MEDS ORDERED: KETOROLAC 15 MG/ML VIAL. IVP ONE (11:30)
--- NOTE | 2021-01-24 11:43 | RAD ---
EXAMINATION: CT Pulmonary Angiogram with IV contrast INDICATION: Reason: shortness of breath, CONTRAST ORDRED, WTG LABS-DIABETIC / Spl. Instructions: / H istory: COMPARISON: Chest radiograph from 01/05/2021 TECHNIQUE: Using helical technique, CT data from the thoracic inlet through the upper abdomen was obt ained during rapid IV contrast infusion. The examination was timed to the pulmonary arterial system t o generate a CT angiographic study. 3D MIPS, sagittal and coronal reformats were generated. FINDINGS: Vascular: The study is diagnostic to the level of the subsegmental pulmonary arteries. Appropriate opacificatio n of pulmonary arteries. Pulmonary arteries: No evidence of acute or chronic pulmonary embolism. The pulmonary arteries are no rmal in size. Thoracic aorta: Normal in size. Pulmonary veins: Normal drainage into the left atrium. Coronary arteries: Normal origins. No detectable calcified coronary atherosclerosis. Systemic veins: Within normal limits. Heart: The heart is normal in size. No pericardial effusion. Chest: Lungs/Pleura: Scattered and confluent predominantly peripheral groundglass opacities throughout bilat eral lungs. No suspicious pulmonary nodules are visualized. No pleural effusion or focal pleural les ion. Mediastinum: Prominent mediastinal and hilar lymph nodes with no pathologically enlarged adenopathy i njuring up to 7 mm in short axis in the right paratracheal region. There are 2 prominent retrocrural lymph nodes versus paraesophageal varices. The visualized thyroid and the esophagus are unremarkable Axilla/Soft Tissue: No supraclavicular or axillary adenopathy. Regional soft tissues are within claudia l limits. Upper abdomen. The liver appears enlarged with diffuse hepatic steatosis. There are perigastric/perip ancreatic varices Gallbladder is absent. Spleen is borderline enlarged measuring 13 cm in maximal AP diameter. Gastric Bones: No evidence of acute fractures or aggressive osseous lesions. IMPRESSION: 1. No pulmonary embolism. 2. Multifocal airspace disease concerning for atypical viral pneumonia. 3. Findings suggestive of early chronic liver disease with likely stigmata of portal hypertension inc luding splenomegaly and varices. Clinical correlation is recommended. PRQS compliance statement - One or more of the following individualized dose reduction techniques wer e utilized for this study: 1. Automated exposure control 2. Adjustment of the mA and/or kV according to patient size 3. Use of iterative reconstruction technique Electronically signed by: Kunal Zimmerman DO (01/24/2021 11:41 AM) [facility]
[2021-01-24] MEDS ORDERED: ALBU2.5V8 IH (15:42)
[2021-01-24] MEDS ORDERED: DOXY100C3 PO (15:42)
== END 2021-01-24 17:25 | disposition home or self-care (01) ==
LOC: ER 09:36
DX: E11.65 Type 2 diabetes mellitus with hyperglycemia (principal); J18.9 Pneumonia, unspecified organism; E11.40 Type 2 diabetes mellitus with diabetic neuropathy, unspecified; Z88.8 Allergy status to other drugs, medicaments and biological substances; Z91.013 Allergy to seafood; Z88.0 Allergy status to penicillin; Z88.1 Allergy status to other antibiotic agents; Z88.5 Allergy status to narcotic agent; Z91.018 Allergy to other foods
CPT/HCPCS: 36415; 71275; 80053; 83735; 83880; 84100; 84484; 85025; 85379; 93005; 93971; 96360; 96361; 99285; J7030; Q9967

== ENCOUNTER → 2021-02-09 | Outpatient (CLI) | payer BC ==
[2021-01-24 09:40] VITALS: BP 120/76
[~2021-02-09] MED LIST changes: +ALBU2.5V8 IH; +DOXY100C3 PO
--- NOTE | 2021-02-09 09:37 | RAD ---
EXAM: Abdomen sonogram. HISTORY: Abnormal liver on CT. TECHNIQUE: Sonographic imaging of the abdomen was performed. COMPARISON: CT dated 02/03/2021. FINDINGS: There is hepatomegaly and hepatic steatosis. There is heterogeneous hepatic echotexture and hepatic surface nodularity suggesting superimposed cirrhosis. No focal hepatic lesion is seen. The g allbladder is surgically absent. The common bile duct is normal in caliber. There is no suspicious re nal lesion or hydronephrosis. The spleen is enlarged, measuring 13.9 cm. The pancreas, aorta and vena cava are obscured due to bowel gas. There is a nonvascular structure hypoechoic structure within the catrina hepatis which is likely due to proximal small bowel. IMPRESSION: 1. Hepatomegaly and hepatic steatosis. There is superimposed coarse hepatic echotexture and surface n odularity suggesting cirrhosis. Correlate with liver function laboratory values. 2. Splenomegaly. 3. Cholecystectomy. 4. Partially obscured midline structures due to bowel gas. Electronically signed by: Lexi Domínguez MD (02/09/2021 9:34 AM) [id number]
== END ==
LOC: US 08:49
PROVIDERS: ATTEND Family Medicine
DX: R16.0 Hepatomegaly, not elsewhere classified (principal); K76.0 Fatty (change of) liver, not elsewhere classified; R16.1 Splenomegaly, not elsewhere classified; R14.3 Flatulence; Z90.49 Acquired absence of other specified parts of digestive tract
CPT/HCPCS: 76700